=== PATIENT | male | born 1980 | race Two or more races ===

== ENCOUNTER 2018-08-12 11:32 | Emergency (ER) | payer SELFPAY ==
[~2018-08-12] VITALS: Ht 165.1 cm; Wt 68.2 kg
[2018-08-12 11:45] VITALS: BP 122/77
[2018-08-12] MEDS ORDERED: TETanus/Pertussis (Acell)/Diphther VAC/PF (Tdap-Adult) 0.5ml syringe IM ONE (12:05)
[2018-08-12] MEDS ORDERED: LIDOcaine 1% w/epiNEPHrine 1:200,000 30ml vial IM ONE (12:05)
--- NOTE | 2018-08-12 12:10 | NUR ---
SUSY Hough at bedside, performing laceration repair.
== END 2018-08-12 12:54 ==
LOC: ER 11:33
DX: S01.112A Laceration without foreign body of left eyelid and periocular area, initial encounter (principal); S51.851A Open bite of right forearm, initial encounter; S40.011A Contusion of right shoulder, initial encounter; S80.211A Abrasion, right knee, initial encounter; W54.0XXA Bitten by dog, initial encounter; Y93.02 Activity, running; Y92.89 Other specified places as the place of occurrence of the external cause; Y99.9 Unspecified external cause status
CPT/HCPCS: 12013; 73060; 90471; 90715; 99283; J3490